=== PATIENT | male | born 1970 | race Caucasian/White ===

== ENCOUNTER 2020-08-09 09:22 | Emergency (ER) | payer OTHER ==
[~2020-08-09] VITALS: Ht 193 cm; Wt 122.0 kg
[2020-08-09] MEDS ORDERED: IV NORMAL SALINE 1,000ML 1,000 ML IV ONE (09:30)
--- NOTE | 2020-08-09 09:32 | PHYS DOC ---
General Adult EDM: Chief Complaint: FLANK PAIN HPI: HPI: Patient is a 50-year-old male sent in by primary care for evaluation of left- sided abdominal and flank pain. Patient states that around midnight he awoke with the pain. States the pain started in the epigastric area and has moved downwards. Is a pain now rates to his penis and lower abdomen. Patient states the pain is worse in the left. Describes it as "as of my appendix was on the left". Denies any vomiting or diarrhea. States she had shaking chills last night but did not check his temperature. Took 1 tamsulosin. Has had a history of multiple (greater than 20) kidney stones that were able to pass without complication. Patient has not taken any medications for pain or fever. Was started on Augmentin yesterday by his primary care for a sinus infection. Denies any pain in lower extremities. Review of Systems: Review of Systems: All other systems within normal limits except for as noted in the HPI Physical Exam: PE: Constitutional: Well developed, well nourished, no acute distress, non-toxic appearance. [] HENT: Normocephalic, atraumatic, bilateral external ears normal, nose normal. [] Eyes: PERRLA, conjunctiva normal, no discharge. [] Neck: No rigidity, supple, no stridor. [] Cardiovascular: Regular rate and rhythm, brisk cap refill [] Lungs & Thorax: Non labored symmetric respirations, no tachypnea or respiratory distress [] Abdomen: Soft, nondistended, generalized tenderness with guarding. Skin: Warm, dry, no erythema, no rash. [] Back: Unremarkable Extremities: No deformities, range of motion grossly intact, no lower extremity edema [] Neurologic: Alert and oriented X 3, no focal deficits noted. [] Psychologic: Affect normal, judgement normal, mood normal. [] EKG: EKG: [] Radiology/Procedures: Radiology/Procedures: EXAM: Chest, abdomen and pelvis CT angiogram with intravenous contrast. HISTORY: Flank pain. TECHNIQUE: Computed tomographic images of the chest, abdomen and pelvis were obtained following the administration of intravenous contrast. Multiplanar reformatting was performed. Three-dimensional maximum intensity projection images were obtained. *One or more of the following individualized dose reduction techniques were utilized for this examination: 1. Automated exposure control. 2. Adjustment of the mA and/or kV according to patient size. 3. Use of iterative reconstruction technique. COMPARISON: None. FINDINGS: Chest: The aorta is normal in caliber. There is no aortic dissection. There is a common origin of the right innominate and left common carotid arteries, a normal aortic arch branching variant. There is no mediastinal or hilar lymphadenopathy. The thyroid is unremarkable. There is no pneumothorax. There is trace left basilar pleural fluid. There is bilateral lower lobe, lingular and right middle lobe linear atelectasis or interstitial infiltrate. No suspicious pulmonary nodule is seen. There is degenerative change throughout the mid and lower thoracic spine, including multiple endplate Schmorl's nodes and endplate remodeling. There is a chronic fracture deformity involving the manubrium. No acute rib fracture is seen. Abdomen and pelvis: There is colonic diverticulosis. There is superimposed wall thickening with surrounding fatty stranding and trace fluid within the proximal to mid sigmoid colon likely due to acute diverticulitis. There is a small amount of intraperitoneal free air. There are scattered throughout the abdomen. However, given the presence of acute appendicitis, this is likely due to a perforated diverticulum. There is mild wall thickening involving a fluid-filled loop of small bowel within the left lower abdomen which is likely reactive rather than due to enteritis. There is no convincing bowel obstruction. There is no drainable fluid collection. No hepatic lesion is seen. The gallbladder is absent. The pancreas, spleen and left adrenal gland are unremarkable. There is a 4.2 cm right adrenal nodule, the attenuation of which favors a benign adenoma. There is contrast within the renal collecting system, limiting evaluation for renal stones. There is no evidence of nephrolithiasis or hydronephrosis. There is a 2.9 cm simple appearing left renal parapelvic cyst. There is mild associated left upper pole caliectasis likely due to the cyst. No intrinsic urothelial lesion is seen. The bladder is nearly empty. The prostate is within normal limits in size. There is no appendicitis. The aorta is normal in caliber. There is no dissection. There is no lymphadenopathy. There is a tiny fat-containing umbilical hernia. There are degenerative changes involving the spine. This is predominantly at the lumbosacral junction. There is associated foraminal stenosis at this level. The re is no acute osseous finding. IMPRESSION: 1. Small amount of pneumoperitoneum. This is likely due to perforated sigmoid diverticulitis given the presence of segmental wall thickening and inflammatory stranding and trace fluid surrounding diverticula within the proximal to mid sigmoid colon. No drainable collection is seen. No alternative etiology for pneumoperitoneum is seen. 2. Suspected reactive prominent loop of small bowel with wall thickening within the left midabdomen. No obstruction or convincing enteritis is seen. 3. 4.2 cm right adrenal adenoma. 4. 2.9 cm simple left renal cyst. Follow-up is not routinely performed for simple cysts. 5. Linear opacities within the bilateral mid and lower lungs likely due to atelectasis. The possibility of interstitial infiltrate is not excluded. There is no consolidated pneumonia. 6. No evidence of aortic dissection or alternative acute vascular finding.[] Heart Score: C/O Chest Pain: No Risk Factors: Risk Factors: DM, Current or recent (<one month) smoker, HTN, HLP, family history of CAD, obesity. Risk Scores: Score 0 - 3: 2.5% MACE over next 6 weeks - Discharge Home Score 4 - 6: 20.3% MACE over next 6 weeks - Admit for Clinical Observation Score 7 - 10: 72.7% MACE over next 6 weeks - Early Invasive Strategies Course & Med Decision Making: Course & Med Decision Making Pertinent Labs and Imaging studies reviewed. (See chart for details) Discussed noted for transfer to the hospital for surgical intervention. Patient requesting to go to , patient accepted by Dr. López [] Zully Disclaimer: Zully Disclaimer: This electronic medical record was generated, in whole or in part, using a voice recognition dictation system. Departure Departure: Impression: Primary Impression: Perforated diverticulum Disposition: 02 SHORT TERM HOSPITAL Condition: GUARDED Referrals: HARPREET MORENO MD (PCP) IQRA JUARES MD Aug 09, 2020 09:32
[2020-08-09] MEDS ORDERED: IOHEXOL 350 MG/ML 100 ML VIAL. IV ONE (09:45)
[2020-08-09] MEDS ORDERED: CONTRAST GIVEN. MC PRN (10:00)
[2020-08-09 10:21] LABS: BASO % 0 % (0-3); EOS % 0 % (0-3); HEMATOCRIT 49.3 % (39.0-53.0); HEMOGLOBIN 16.6 g/dL (13.0-17.5); LYMPH # 0.4 x10^3/uL (1.0-4.8); LYMPH % 3 % (24-48); MEAN CORPUSCULAR HEMOGLOBIN 32 pg (25-35); MEAN CORPUSCULAR HGB CONC 34 g/dL (31-37); MEAN CORPUSCULAR VOLUME 94 fL (79-100); MONO # 0.7 x10^3/uL (0.0-1.1); MONO % 4 % (0-9); NEUT # 14.3 x10^3uL (1.8-7.7); NEUT % 93 % (31-73); PLATELET COUNT 223 x10^3/uL (140-400); RED BLOOD COUNT 5.26 x10^6/uL (4.30-5.70); RED CELL DISTRIBUTION WIDTH 13.7 % (11.5-14.5); WHITE BLOOD COUNT 15.3 x10^3/uL (4.0-11.0)
[2020-08-09 10:27] LABS: BILIRUBIN,URINE SMALL (NEG); CLARITY,URINE CLEAR; COLOR,URINE AMBER; GLUCOSE,URINE NEG (NEG)
[2020-08-09 10:28] LABS: NITRITE,URINE NEG (NEG)
[2020-08-09 10:30] LABS: CALCIUM 8.9 mg/dL (8.5-10.1); CREATININE 1.1 mg/dL (0.7-1.3); GFR 70.9; POTASSIUM 4.1 mmol/L (3.5-5.1)
[2020-08-09 10:36] LABS: BACTERIA,URINE 0 /HPF (0-FEW); SQUAMOUS EPITHELIAL CELL,UR OCC /LPF
[2020-08-09 10:48] LABS: ALBUMIN 4.3 g/dL (3.4-5.0); ALBUMIN/GLOBULIN RATIO 1.2 (1.0-1.7); TOTAL BILIRUBIN 1.6 mg/dL (0.2-1.0)
--- NOTE | 2020-08-09 10:50 | RAD ---
EXAM: Chest, abdomen and pelvis CT angiogram with intravenous contrast. HISTORY: Flank pain. TECHNIQUE: Computed tomographic images of the chest, abdomen and pelvis were obtained following the a dministration of intravenous contrast. Multiplanar reformatting was performed. Three-dimensional maxi mum intensity projection images were obtained. *One or more of the following individualized dose reduction techniques were utilized for this examina tion: 1. Automated exposure control. 2. Adjustment of the mA and/or kV according to patient size. 3. Use of iterative reconstruction technique. COMPARISON: None. FINDINGS: Chest: The aorta is normal in caliber. There is no aortic dissection. There is a common origin of the right innominate and left common carotid arteries, a normal aortic arch branching variant. There is no mediastinal or hilar lymphadenopathy. The thyroid is unremarkable. There is no pneumothorax. There is trace left basilar pleural fluid. There is bilateral lower lobe, lingular and right middle lobe l inear atelectasis or interstitial infiltrate. No suspicious pulmonary nodule is seen. There is degene rative change throughout the mid and lower thoracic spine, including multiple endplate Schmorl's node s and endplate remodeling. There is a chronic fracture deformity involving the manubrium. No acute ri b fracture is seen. Abdomen and pelvis: There is colonic diverticulosis. There is superimposed wall thickening with surro unding fatty stranding and trace fluid within the proximal to mid sigmoid colon likely due to acute d iverticulitis. There is a small amount of intraperitoneal free air. There are scattered throughout th e abdomen. However, given the presence of acute appendicitis, this is likely due to a perforated dive rticulum. There is mild wall thickening involving a fluid-filled loop of small bowel within the left lower abdomen which is likely reactive rather than due to enteritis. There is no convincing bowel obs truction. There is no drainable fluid collection. No hepatic lesion is seen. The gallbladder is absent. The pancreas, spleen and left adrenal gland are unremarkable. There is a 4.2 cm right adrenal nodule, the attenuation of which favors a benign adeno ma. There is contrast within the renal collecting system, limiting evaluation for renal stones. There is no evidence of nephrolithiasis or hydronephrosis. There is a 2.9 cm simple appearing left renal p arapelvic cyst. There is mild associated left upper pole caliectasis likely due to the cyst. No intri nsic urothelial lesion is seen. The bladder is nearly empty. The prostate is within normal limits in size. There is no appendicitis. The aorta is normal in caliber. There is no dissection. There is no lymphadenopathy. There is a tiny fat-containing umbilical hernia. There are degenerative changes involving the spine. This is predomin antly at the lumbosacral junction. There is associated foraminal stenosis at this level. There is no acute osseous finding. IMPRESSION: 1. Small amount of pneumoperitoneum. This is likely due to perforated sigmoid diverticulitis given th e presence of segmental wall thickening and inflammatory stranding and trace fluid surrounding divert icula within the proximal to mid sigmoid colon. No drainable collection is seen. No alternative etiol ogy for pneumoperitoneum is seen. 2. Suspected reactive prominent loop of small bowel with wall thickening within the left midabdomen. No obstruction or convincing enteritis is seen. 3. 4.2 cm right adrenal adenoma. 4. 2.9 cm simple left renal cyst. Follow-up is not routinely performed for simple cysts. 5. Linear opacities within the bilateral mid and lower lungs likely due to atelectasis. The possibili ty of interstitial infiltrate is not excluded. There is no consolidated pneumonia. 6. No evidence of aortic dissection or alternative acute vascular finding. Electronically signed by: Mayra Stokes MD (08/09/2020 10:47 AM) [id number]
[2020-08-09 11:10] VITALS: BP 121/82
[2020-08-09] MEDS ORDERED: PIPERACILLIN/TAZOBACTAM 3.375 GM in IV NORMAL SALINE 50ML 50 ML IV ONE (11:30)
[2020-08-09] MEDS ORDERED: IV NORMAL SALINE 50ML 50 ML ONE (11:41)
[2020-08-09] MEDS ORDERED: PIPERACILLIN/TAZOBACTAM 3.375 GM VIAL IV ONE (11:42)
[2020-08-09] MEDS ORDERED: HYDROmorphone PF 1 MG/ML DISP.SYRIN ONE (12:00)
[2020-08-09] MEDS ORDERED: ONDANSETRON PF 4 MG/2 ML VIAL. IVP ONE (12:00)
[2020-08-09] MEDS ORDERED: ONDANSETRON PF 4 MG/2 ML VIAL. ONE (12:00)
[2020-08-09] MEDS ORDERED: HYDROmorphone PF 1 MG/ML DISP.SYRIN IVP ONE ×2 (12:00→15:30)
[2020-08-09 13:03] LABS: % BANDS 35 % (0-9); % LYMPHS 3 % (24-48); % MONOS 7 % (0-10); % SEGS 55 % (35-66)
[2020-08-09 13:05] LABS: PLT ESTIMATE ADEQUATE (ADEQUATE); TOXIC GRANULATION SLIGHT
== END 2020-08-09 15:34 | disposition short-term general hospital (02) ==
LOC: ER 09:22
DX: K57.20 Diverticulitis of large intestine with perforation and abscess without bleeding (principal)
CPT/HCPCS: 36415; 71275; 74174; 80053; 81001; 83605; 83735; 83880; 84484; 85007; 85025; 85379; 87040; 96365; 96375; 96376; 99285; J1170; J2405; J2543; J3010; J7030; Q9967